=== PATIENT | male | born 1950 | race Caucasian/White ===

== ENCOUNTER 2017-09-15 08:19 | Emergency (ER) | payer OTHER ==
[~2017-09-15] VITALS: Wt 127.0 kg
[~2017-09-15 08:19] MED LIST: ADVAIR 250/501 EA INH; ASPIRIN FOR CHI81 MG PO; ATENOLOL25 MG PO; IMDUR120 MG PO; METFORMIN HCL500 MG PO; NKHM PO; PREDNISONE10 MG PO; PROTONIX TR40 MG PO; RANITIDINE150 MG PO; SIMVASTATIN20 MG PO; ZESTRIL,PRINIVI10 MG PO; ZOLOFT100 MG PO
[2017-09-15 08:52] LABS: HEMATOCRIT 42.4 % (42.0-52.0); MEAN CELL VOLUME 96.8 fl (80.0-94.0); MEAN CORPUSCULAR HGB 34.2 pg (27.0-31.0); MEAN CORPUSCULAR HGB CONC 35.4 g/dl (33.0-37.0); MEAN PLATELET VOLUME 9.2 fl (9.6-12.3); PLATELET COUNT AUTOMATED 184 10*3/uL (130-400); RED BLOOD COUNT 4.38 10*6/uL (4.50-5.90); RED CELL DISTRI WIDTH 13.3 % (0-14.5); WHITE BLOOD COUNT 7.6 10*3/uL (4.8-10.8)
[2017-09-15 09:01] LABS: ACT PARTIAL THROMBO TIME 24.9 SECONDS (20.8-31.5); INTERNATIONAL NORM RATIO 1.1 (2.0-3.5)
[2017-09-15 09:07] LABS: ALBUMIN 3.8 gm/dl (3.1-4.5); ALKALINE PHOSPHATASE 58 U/L (45-117); BUN 15 mg/dl (7-24); CHLORIDE 102 mmol/L (98-107); CREATININE 1.29 mg/dL (0.70-1.30); POTASSIUM 4.6 mmol/L (3.5-5.1); SGOT/AST 25 IU/L (3-35); SGPT/ALT 24 U/L (12-78); SODIUM 136 mmol/L (136-145); TOTAL PROTEIN 7.3 gm/dL (6.4-8.2)
[2017-09-15 09:10] LABS: TROPONIN I < 0.015 ng/ml (<0.045)
[2017-09-15 09:18] LABS: ATYPICAL LYMPHS 1 % (0-0); PLATELET SUFFICIENCY NORMAL (NORMAL); TOTAL CELLS COUNTED 100 #CELLS
[2017-09-15 11:53] VITALS: BP 159/68
== END 2017-09-15 12:24 | disposition short-term general hospital (02) ==
LOC: ED 08:19
PROVIDERS: Emergency Medicine
DX: J44.1 Chronic obstructive pulmonary disease with (acute) exacerbation (principal); Z79.899 Other long term (current) drug therapy; Z79.02 Long term (current) use of antithrombotics/antiplatelets